=== PATIENT | female | born 1970 | race Caucasian/White ===

== ENCOUNTER 2017-12-19 17:55 | Emergency (ER) | payer SELFPAY ==
[~2017-12-19] VITALS: Ht 167.6 cm; Wt 95.3 kg
[2017-12-19 18:07] VITALS: BP 163/93
[2017-12-19] MEDS ORDERED: MUPI22OI2 TP (18:42)
[2017-12-19] MEDS ORDERED: CEPH500C PO (18:42)
--- NOTE | 2017-12-19 18:43 | PHYS DOC ---
Past Medical History Past Medical History: No Pertinent History Past Surgical History: No Surgical History Alcohol Use: Occasionally Drug Use: None Adult General Chief Complaint Chief Complaint: UPPER EXTREMITY PAIN HPI HPI Patient is a 47 year old female who presents to the emergency department with complaints of redness and warmth of the right forearm. She states that about 4 or 5 days ago she was bitten or stung by something and since then she has had increased redness of the site. Patient states for the first few days the area was itchy but she denies any itching in the last 24 hours. Patient also denies any fever, drainage, numbness, or tingling of the affected site. Review of Systems Review of Systems Constitutional: Denies fever or chills [] HENT: Denies nasal congestion or sore throat [] Respiratory: Denies cough or shortness of breath [] Musculoskeletal: Denies back pain or joint pain; reports right forearm tenderness[] Integument: Reports redness and warmth of the right forearm for the last 4-5 days Neurologic: Denies headache, focal weakness or sensory changes [] All other systems were reviewed and found to be within normal limits, except as documented in this note. Allergies Allergies Allergies Coded Allergies Type Severity Reaction Last Updated Verified No Known Drug Allergies 04/25/15 No Physical Exam Physical Exam Constitutional: Well developed, well nourished, no acute distress, non-toxic appearance. [] HENT: Normocephalic, atraumatic, bilateral external ears normal, nose normal. [] Eyes: PERRLA, conjunctiva normal, no discharge. [] Skin: Warm, dry, 6 cm diameter area of redness and warmth noted to anterior right forearm consistent with cellulitis and allergic reaction to insect sting, There is a centralized punctum with no drainage present Extremities: No tenderness, no cyanosis, no clubbing, ROM intact, no edema. [] Neurologic: Alert and oriented X 3, normal motor function, normal sensory function, no focal deficits noted. [] Psychologic: Affect normal, judgement normal, mood normal. [] Current Patient Data Vital Signs Vital Signs Date Time Temp Pulse Resp B/P (MAP) Pulse Ox O2 Delivery O2 Flow Rate FiO2 12/19/17 18:07 97.8 106 22 163/93 (116) 99 Room Air 97.8 EKG EKG [] Radiology/Procedures Radiology/Procedures [] Course & Med Decision Making Course & Med Decision Making Pertinent Labs and Imaging studies reviewed. (See chart for details) dx: Allergic reaction to insect bite, cellulitis Prescriptions written for mupirocin and Keflex. Patient advised to apply over- the-counter hydrocortisone to the area 4 times a day as needed for itching. May also apply warm packs to the area for comfort. Follow-up with primary care doctor in the next 1-2 days. Return to the emergency room if symptoms worsen. Patient verbalized an understanding of home care, medications, follow-up, and return to ED instructions and was in agreement with the plan of care. [] Dragon Disclaimer Dragon Disclaimer This electronic medical record was generated, in whole or in part, using a voice recognition dictation system. Departure Departure Impression: Primary Impression: Insect sting allergy, current reaction Additional Impression: Cellulitis of right forearm Disposition: HOME, SELF-CARE Condition: STABLE Referrals: NO PCP (PCP) Patient Instructions: Cellulitis, Ryha-ir-Chhe, Insect Bite, Yebt-[id number] Additional Instructions: Fill prescriptions and use as directed, apply [id number] hydrocortisone to the area 4 times a day as needed for itching. May also apply warm packs to the area for comfort. Follow-up with primary care doctor in the next 1-2 days. Return to the emergency room if symptoms worsen. Scripts Cephalexin (CEPHALEXIN) 500 Mg Capsule 1 CAP PO QID, #40 CAP Prov: LORETO WOO APRN 12/19/17 Mupirocin (MUPIROCIN OINTMENT) 22 Gm Oint...g. 1 LIOR TP TID for WOUND CARE, #1 TUBE Prov: LORETO WOO APRN 12/19/17 Problem Qualifiers Primary Impression: Insect sting allergy, current reaction Encounter type: initial encounter Injury intent: accidental or unintentional Qualified Codes: T63.481A - Toxic effect of venom of other arthropod, accidental (unintentional), initial encounter LORETO WOO APRN Dec 19, 2017 18:43
== END 2017-12-19 18:56 | disposition home or self-care (01) ==
LOC: ER 17:55
DX: T63.481A Toxic effect of venom of other arthropod, accidental (unintentional), initial encounter (principal); L03.113 Cellulitis of right upper limb; Y92.89 Other specified places as the place of occurrence of the external cause
CPT/HCPCS: 99283

== ENCOUNTER 2020-02-10 17:09 | Emergency (ER) | payer SELFPAY ==
[~2020-02-10] VITALS: Ht 167.6 cm; Wt 105.0 kg
[~2020-02-10 17:09] MED LIST: CEPH500C PO; MUPI22OI2 TP
[2020-02-10] MEDS ORDERED: predniSONE 10 MG TABLET PO ONE (17:45)
--- NOTE | 2020-02-10 17:58 | PHYS DOC ---
Past Medical History Past Medical History: No Pertinent History (SCOOTER SHERIDAN APRN) Past Surgical History: No Surgical History (SCOOTER SHERIDAN APRN) Smoking Status: Current Every Day Smoker Alcohol Use: Occasionally Drug Use: None (SCOOTER SHERIDAN APRN) General Adult EDM: Chief Complaint: SHORTNESS OF BREATH HPI: HPI: Patient is a 49-year-old female with history of smoking presenting to the ED today complaining of shortness of breath, cough, symptoms began 5 weeks ago then subsided then returned today. Patient is very nervous. She states she does not want any IVs or labs done. She states she prefers not to be in the hospital but was encouraged to come today by the . She states she has been trying to use [id number] inhaler with no relief. (SCOOTER SHERIDAN APRN) Review of Systems: Review of Systems: Constitutional: Denies fever or chills. [] Eyes: Denies change in visual acuity. [] HENT: Reports left upper gum dental pain. Denies nasal congestion or sore throat. [] Respiratory: Reports cough and shortness of breath Cardiovascular: Denies chest pain or edema. [] GI: Denies abdominal pain, nausea, vomiting, bloody stools or diarrhea. [] : Denies dysuria. [] Musculoskeletal: Denies back pain or joint pain. [] Integument: Denies rash. [] Neurologic: Denies headache, focal weakness or sensory changes. [] Psychiatric: Denies depression or anxiety. [] (SCOOTER SHERIDAN APRN) Heart Score: Risk Factors: Risk Factors: DM, Current or recent (<one month) smoker, HTN, HLP, family history of CAD, obesity. Risk Scores: Score 0 - 3: 2.5% MACE over next 6 weeks - Discharge Home Score 4 - 6: 20.3% MACE over next 6 weeks - Admit for Clinical Observation Score 7 - 10: 72.7% MACE over next 6 weeks - Early Invasive Strategies (SCOOTER SHERIDAN APRN) Current Medications: Current Medications Medications (Trade) Dose Ordered Sig/Cody Start Time Stop Time Status Last Admin Dose Admin Prednisone (Prednisone) 50 mg 1X ONCE 02/10/20 17:45 02/10/20 17:46 DC (SCOOTER SHERIDAN APRN) Allergies: Allergies: Allergies Coded Allergies Type Severity Reaction Last Updated Verified No Known Drug Allergies 04/25/15 No (SCOOTER SHERIDAN APRN) Physical Exam: PE: Constitutional: Well developed, well nourished, no acute distress, non-toxic appearance. [] HENT: Normocephalic, atraumatic, bilateral external ears normal, oropharynx moist, no oral exudates, nose normal. [] Approximately tooth #14 is decayed. Tooth #15 is also decayed. Eyes: PERRLA, EOMI, conjunctiva normal, no discharge. [] Neck: Normal range of motion, no tenderness, supple, no stridor. [] Cardiovascular:Heart rate regular rhythm, no murmur [] Lungs & Thorax: Bilateral breath sounds clear to auscultation [] Abdomen: Bowel sounds normal, soft, no tenderness, no masses, no pulsatile masses. [] Skin: Warm, dry, no erythema, no rash. [] Back: No tenderness, no CVA tenderness. [] Extremities: No tenderness, no cyanosis, no clubbing, ROM intact, no edema. [] Neurologic: Alert and oriented X 3, normal motor function, normal sensory function, no focal deficits noted. [] Psychologic: Patient appears anxious. (SCOOTER SHERIDAN APRN) EKG: EKG: [] (SCOOTER SHERIDAN APRN) Radiology/Procedures: Radiology/Procedures: []PROCEDURE: CHEST AP ONLY Exam: Chest one view INDICATION: Short of air TECHNIQUE: Frontal view of the chest Comparisons: None FINDINGS: The cardiomediastinal silhouette and pulmonary vessels are within normal limits. Patchy airspace disease at the right lung base. No pleural effusion. IMPRESSION: Right basilar airspace disease may be infectious or inflammatory in etiology. Electronically signed by: Rocky Hyde MD (02/10/2020 7:05 PM) [facility] DICTATED and SIGNED BY: ROCKY HYDE MD DATE: 02/10/20 [id number] (SCOOTER SHERIDAN APRN) Course & Med Decision Making: Course & Med Decision Making Pertinent Labs and Imaging studies reviewed. (See chart for details) This is a 49-year-old female patient current smoker presenting to the ED today with shortness of breath and a cough that began 5 weeks ago but subsided then returned today. O2 sats 98% on room air. Patient is very anxious but refusing any lab work refused covid testing. Chest x-ray interpreted by radiologist was noted for right basilar airspace disease may be infectious or inflammatory in etiology. Discharged with prednisone and azithromycin. Patient is also complaining of left upper gum dental pain that she has had for weeks. She states she will look for a dentist to follow-up with. She continues to be anxious. Give a prescription for amoxicillin for dental infection. Follow-up with the dentist. Provided return precautions. Discharge to home, encouraged to consider smoking cessation. (SCOOTER SHERIDAN APRN) Dragon Disclaimer: Dragon Disclaimer: This electronic medical record was generated, in whole or in part, using a voice recognition dictation system. (SCOOTER SHERIDAN APRN) Departure Departure Impression: Primary Impression: Right lower lobe pneumonia Qualified Codes: J18.9 - Pneumonia, unspecified organism Additional Impressions: Smoking addiction Dental infection Disposition: 01 DC HOME SELF CARE/HOMELESS Condition: STABLE Referrals: NO PCP (PCP) Follow-up with your primary care doctor as well as a dentist next week Patient Instructions: Dental Pain, Pneumonia, Adult, Smoking Cessation Additional Instructions: You were evaluated in the emergency room, you have pneumonia that is suspicious for COVID-19 pneumonia. You also have dental infection. Take the prescribed medicines as ordered. Follow-up with a dentist as well as your primary care doctor next week Scripts Tramadol Hcl (TRAMADOL HCL) 50 Mg Tablet 50 MG PO Q6HRS PRN for PAIN, #20 TAB Prov: SCOOTER SHERIDAN APRN 20 Albuterol Sulfate (Proventil Hfa) 6.7 Gm Hfa.aer.ad 1 PUFF INH PRN Q6HRS PRN for SHORTNESS OF BREATH, #1 INHALER Prov: SCOOTER SHERIDAN APRN 12/20 Prednisone (PREDNISONE) 50 Mg Tablet 1 TAB PO DAILY, #5 TAB Prov: SCOOTER SHERIDAN APRN 12/20 Azithromycin (ZITHROMAX) 250 Mg Tablet 1 PKG PO UD, #1 PKG Prov: SCOOTER SHERIDAN APRN 12/20 Amoxicillin (AMOXICILLIN) 500 Mg Tablet 1 TAB PO BID, #20 TAB Prov: SCOOTER SHERIDAN APRN 20 Attending Signature Attending Signature I have reviewed the PA/BOX SHOOK PATCHER's note and plan of care. I was available for consultation as needed during the patient's visit in the emergency department. I agree with the clinical impression, plan, and disposition. (DAVID CAM DO) SCOOTER SHERIDAN APRN Feb 10, 2020 17:58 DAVID CAM DO Feb 11, 2020 00:45
--- NOTE | 2020-02-10 19:08 | RAD ---
Exam: Chest one view INDICATION: Short of air TECHNIQUE: Frontal view of the chest Comparisons: None FINDINGS: The cardiomediastinal silhouette and pulmonary vessels are within normal limits. Patchy airspace disease at the right lung base. No pleural effusion. IMPRESSION: Right basilar airspace disease may be infectious or inflammatory in etiology. Electronically signed by: Rocky Navarro MD (02/10/2020 7:05 PM) [facility]
[2020-02-10] MEDS ORDERED: TRAM50TA PO (20:07)
[2020-02-10] MEDS ORDERED: PROVENTIL HFA6.7 G2 INH (20:07)
[2020-02-10] MEDS ORDERED: PRED50TA PO (20:07)
[2020-02-10] MEDS ORDERED: AZIT250T PO (20:07)
[2020-02-10] MEDS ORDERED: AMOX500T PO (20:07)
[2020-02-10 20:17] VITALS: BP 120/100
== END 2020-02-10 20:24 | disposition home or self-care (01) ==
LOC: ER 17:09
DX: J18.9 Pneumonia, unspecified organism (principal); K04.7 Periapical abscess without sinus; F17.200 Nicotine dependence, unspecified, uncomplicated
CPT/HCPCS: 71045; 99285; J7512